=== PATIENT | female | born 1965 | race Caucasian/White ===

== ENCOUNTER → 2018-10-08 | Outpatient (CLI) | payer OTHER ==
[~2018-10-08] MED LIST: IOPAMIDOL 370 MG/ML 200 ML INFUS..BTL INJ ONE; LEVOTHYROXINE100 MC1 IV; MIMVEY 1-0.5 M1 EACH PO; SODIUM CHLORIDE 0.9% 100 ML 100 ML ONE
--- NOTE | 2018-10-08 16:56 | Diagnostic Imaging Report ---
EXAM: CTA chest with contrast INDICATION: Precordial chest pain. Aneurysm. Back pain COMPARISON: None. TECHNIQUE: The chest was scanned utilizing a multidetector helical scanner after administration of IV contrast. Coronal and sagittal reformations were obtained. CTA chest protocol was performed. Three-D reformatted images were obtained of the thoracic aorta IV CONTRAST: 100 mL of Isovue-370 ORAL CONTRAST: Water RADIATION DOSE: Total DLP: 387.53 mGy*cm Estimated effective dose: (DLP x 0.015 x size factor) mSv All CT scans are performed using radiation dose reduction techniques. Technical factors are evaluated and adjusted to ensure appropriate moderation of exposure. Automated dose management technology is applied to adjust the radiation dose to minimize exposure while achieving a diagnostic-quality image. COMPLICATIONS: None FINDINGS: LINES/ TUBES: None. LUNGS AND AIRWAYS: 5 mm calcified granuloma in the anterior inferior right middle lobe. The lungs are otherwise unremarkable. Airways are normal. PLEURA: The pleural spaces are clear. HEART AND MEDIASTINUM: The thyroid gland is normal. No mediastinal, hilar or axillary lymphadenopathy. The heart is normal in size. There is no pericardial effusion. Prominence of the ascending thoracic aorta measuring 3.4 cm in maximal dimension. The thoracic aorta and branch vessels are otherwise normal in appearance. UPPER ABDOMEN: Surgical clips are seen in the gallbladder fossa. BONES: The visualized bony thorax is within normal limits. SOFT TISSUES: Unremarkable. Impression: Prominence of the ascending thoracic aorta measuring 3.4 cm in maximal dimension. The thoracic aorta and branch vessels are otherwise normal in appearance. Signed by: Dr. Claudio Brock M.D. on 10/08/2018 4:53 PM
== END ==
LOC: CT 13:13
PROVIDERS: ATTEND Internal Medicine Cardiovascular Disease
DX: R07.2 Precordial pain (principal); M54.9 Dorsalgia, unspecified
CPT/HCPCS: 71275; Q9967

== ENCOUNTER → 2018-10-12 | Outpatient (CLI) | payer OTHER ==
[~2018-10-12] MED LIST changes: +CARAFATE1 GM/10 ML PO; +LEVOTHYROXINE112 MCG PO; +OMEPRAZOLE40 MG PO
--- NOTE | 2018-10-12 17:19 | Diagnostic Imaging Report ---
EXAMINATION: CT of the abdomen and pelvis with contrast. TECHNIQUE: Helical CT images of the abdomen and pelvis were performed from the lung bases to the lesser trochanters after the intravenous administration of 150 cc of Isovue 300 and the oral administration of none. Coronal and sagittal reformatted images were obtained.Dose modulation, iterative reconstruction, and/or weight based adjustment of the mA/kV was utilized to reduce the radiation dose to as low as reasonably achievable. COMPARISON: None. CLINICAL HISTORY:Right upper quadrant pain DISCUSSION: ABDOMEN/PELVIS: LOWER THORAX:Unremarkable. HEPATOBILIARY: No focal hepatic lesions. No intra-or extrahepatic biliary ductal dilation. Cholecystectomy. SPLEEN: No splenomegaly. PANCREAS: No focal masses or ductal dilatation. ADRENALS: No adrenal nodules. KIDNEYS/URETERS: Punctate right renal and left renal calculus. PELVIC ORGANS/BLADDER: The bladder is normal. PERITONEUM/RETROPERITONEUM: No free air or fluid. LYMPH NODES: No intra-abdominal, retroperitoneal, pelvic or inguinal lymphadenopathy. VESSELS: The celiac trunk,superior and inferior mesenteric and bilateral renal arteries are patent The portal, superior mesenteric and splenic veins are patent. GI TRACT: No distention or wall thickening. Diverticulosis without inflammatory change. Appendix is normal. BONES AND SOFT TISSUE: No bony destructive lesions. No soft tissue abnormalities. IMPRESSION: No acute CT finding. Punctate bilateral renal calculi Signed by: Dr. Bill Bynum M.D. on 10/12/2018 5:16 PM
== END ==
LOC: CT 15:45
PROVIDERS: ATTEND Internal Medicine Gastroenterology
DX: R10.11 Right upper quadrant pain (principal); R10.13 Epigastric pain; R11.0 Nausea; R19.7 Diarrhea, unspecified
CPT/HCPCS: 74177; Q9967

== ENCOUNTER → 2018-10-14 | Day surgery (SDC) | payer OTHER ==
[~2018-10-14] MED LIST changes: +FENTANYL CITRATE/PF 100MCG/2 ML INJ ONE; +GLUCAGON FOR INJ 1 MG VIAL ONE; +HYOSCYAMINE SULFATE 0.5 MG/ML INJ ONE; -IOPAMIDOL 370 MG/ML 200 ML INFUS..BTL INJ ONE; +MIDAZOLAM HCL 2 MG/2 ML VIAL ONE; +PROPOFOL IV EMULSION 10 MG/ML 50 ML VIAL ONE; -SODIUM CHLORIDE 0.9% 100 ML 100 ML ONE
--- OUTSIDE RECORDS SUMMARY | 2018-10-14 07:46 | XMS REPORT ---
Author Author [facility] Address Unknown Phone Unavailable Care Team Providers Care Wall Insulation Sprayer Name Role Phone CAROL NGUYEN Unavailable Unavailable Maxine SHANNON Unavailable Unavailable REJI SHANNON Unavailable Unavailable Problems This patient has no known problems. Allergies, Adverse Reactions, Alerts This patient has no known allergies or adverse reactions. Medications This patient has no known medications. Results Test Description Test Time Test Comments Text Results Atomic Results Result Comments CT ABDOMEN/PELVIS W 2018-10-12 17:10:00 [place] [address] Patient Name: AMY SARAVIA MR #: [id number] : 1965 Age/Sex: 53/F Req #: [id number] Adm Physician: Ordered by: CAROL NGUYEN MD Report #: [id number] Location: CT Room/Bed: Procedure: [id number] CT/CT ABDOMEN/PELVIS W Exam Date: Exam Time: REPORT STATUS: Signed EXAMINATION: CT of the abdomen and pelvis with contrast. TECHNIQ UE: Helical CT images of the abdomen and pelvis were performed from the lung bases to the lesser trochanters after the intravenous administration of 150 cc of Isovue 300 and the oral administration of none. Coronal and sagittal reformatted images were obtained.Dose modulation, iterative reconstruction, and/or weight based adjustment of the mA/kV was utilized to reduce the radiation dose to as low as reasonably achievable. COMPARISON: None. CLINICAL HISTORY:Right upper quadrant pain DISCUSSION: ABDOMEN/PELVIS: LOWER THORAX:Unremarkable. HEPATOBILIARY: No focal hepatic lesions. No intra-or extrahepatic biliary ductal dilation. Cholecystectomy. SPLEEN: No splenomegaly. PANCREAS: No focal masses or ductal dilatation. ADRENALS: No adrenal nodules. KIDNEYS/URETERS: Punctate right renal and left renal calculus. PELVIC ORGANS/BLADDER: The bladder is normal. PERITONEUM/RETROPERITONEUM: No free air or fluid. LYMPH NODES: No intra-abdominal, retroperitoneal, pelvic or inguinal lymphadenopathy. VESSELS: The celiac trunk,superior and inferior mesenteric and bilateral renal arteries are patent The portal, superior mesenteric and splenic veins are patent. GI TRACT: No distention or wall thickening. Diverticulosis without inflammatory change. Appendix is normal. BONES AND SOFT TISSUE: No bony destructive lesions. No soft tissue abnormalities. IMPRESSION: No acute CT finding. Punctate bilateral renal calculi Signed by: Dr. Reji Alvarado M.D. on 10/12/2018 5:16 PM Dictated By: REJI ALVARADO MD 15 Transcribed By: ANDI on 10/12/181715 COPY TO: CAROL NGUYEN MD CTA CHEST 2018-10-08 16:45:00 [place] [address] Patient Name: AMY SARAVIA MR #: [id number] : 1965 Age/Sex: 53/F Req #: [id number] Adm Physician: Ordered by: KAREN SHANNON DO Report #: [id number] Location: CT Room/Bed: Procedure: [id number] CT/CTA CHEST Exam Date: 10/08/18 Exam Time: 1400 REPORT STATUS: Signed EXAM: CTA chest with contrast INDICATION: Precordial chest pain. Aneurysm. Back pain COMPARISON: None. TECHNIQUE: The chest was scanned utilizing a multidetector helical scanner after administration of IV contrast. Coronal and sagittal reformations were obtained. CTA chest protocol was performed. Three-D reformatted images were obtained of the thoracic aorta IV CONTRAST: 100 mL of Isovue-370 ORAL CONTRAST: Water RADIATION DOSE: Total DLP: 387.53 mGy*cm Estimated effective dose: (DLP x 0.015 x size factor) mSv All CT scans are performed using radiation dose reduction techniques. Technical factors are evaluated and adjusted to ensure appropriate moderation of exposure. Automated dose management technology is applied to adjust the radiation dose to minimize exposure while achieving a diagnostic-quality image. COMPLICATIONS: None FINDINGS: LINES/ TUBES: None. LUNGS AND AIRWAYS: 5 mm calcified granuloma in the anterior inferior right middle lobe. The lungs are otherwise unremarkable. Airways are normal. PLEURA: The pleural spaces are clear. HEART AND MEDIASTINUM: The thyroid gland is normal. No mediastinal, hilar or axillary lymphadenopathy. The heart is normal in size. There is no pericardial effusion. Prominence of the ascending thoracic aorta measuring 3.4 cm in maximal dimension. The thoracic aorta and branch vessels are otherwise normal in appearance. UPPER ABDOMEN: Surgical clips are seen in the gallbladder fossa. BONES: The visualized bony thorax is within normal limits. SOFT TISSUES: Unremarkable. Impression: Prominence of the ascending thoracic aorta measuring 3.4 cm in maximal dimension. The thoracic aorta and branch vessels are otherwise normal in appearance. Signed by: Dr. Claudio Brock M.D. on 10/08/2018 4:53 PM Dictated By: CLAUDIO BROCK MD, MD 1656 Transcribed By: ANDI on 10/08/18 1658 COPY TO: KAREN TORRES DO HEPTOBILIARY W PHARM [place] [address] Patient Name: AMY SARAVIA MR #: [id number] : 1965 Age/Sex: 51/F Req #: [id number] Adm Physician: Ordered by: SHANNON ANDREW DO Report #: [id number] Location: [place] Room/Bed: Procedure: [id number] NM/HEPTOBILIARY W PHARM Exam Date: 07/13/17 Exam Time: 1400 REPORT STATUS: Signed Hepatobiliary Scan with Gallbladder Ejection Fraction Clinical information: RUQ pain x 3 months Technique: Following intravenous administration of 7 millicuries of Tc-99m mebrofenin, dynamic images of the abdomen in the anterior projection were obtained through 40 minutes. Sincalide (CCK analog) 1.8 micrograms was administered intravenously over 30 minutes with additional imaging for determination of gallbladder ejection fraction. Discussion: Perfusion of the liver is normal. Extraction of tracer by the liver parenchyma is normal. Tracer appears promptly within the biliary tract. The gallbladder begins to fill by 6 minutes post injection of tracer and fills adequately. Tracer is seen in the small bowel by 30 minutes. The gallbladder ejection fraction with sincalide is 18% (normal greater than 40%). Impression: 1. Filling of the gallbladder excludes acute cystic duct obstruction/acute cholecystitis. 2. The decreased gallbladder ejection fraction of 18% supports the clinical diagnosis of chronic cholecystitis/gallbladder dyskinesia. Signed by: Dr. Ar Holley M.D. on 07/14/2017 10:27 AM Dictated By: AR HOLLEY MD 1027 Transcribed By: ANDI on 07/14/17 1027 COPY TO: REJI SHANNON DO
[2018-10-14 12:10] VITALS: BP 115/88
--- NOTE | 2018-10-14 12:31 | Operative Report ---
DATE OF PROCEDURE: October 14, 2018 REFERRING PHYSICIAN: Dr. Shahbaz Shannon PROCEDURES PERFORMED 1. Esophagogastroduodenoscopy with esophageal dilatation and biopsies. 2. Colonoscopy with polypectomy. INDICATIONS FOR EGD: Dysphagia, epigastric pain. INDICATIONS FOR COLONOSCOPY: Colorectal cancer screening. MEDICATION: Patient was done under MAC. Please see anesthesiologist's note. PROCEDURE: With the patient in the left lateral decubitus position, the flexible fiberoptic Olympus gastroscope was inserted into the esophagus under direct visualization without any difficulty. There was some patchy intense erythema noted in the distal esophagus. A mild stricture was noted at the GE junction that was dilated to a size 50-Swedish Mcgill. The scope was then advanced with ease into the stomach. Mucosa overlying the antrum and the body revealed some patchy erythema and low-grade to moderate edema, and biopsies were obtained and sent to stain for H. pylori. Pylorus appeared to be of normal contour and shape. It was intubated with ease, and the scope was advanced all the way to the 2nd portion of the duodenum. The scope was then withdrawn slowly. Mucosa overlying the proximal 2nd portion and the duodenal bulb overall appeared to be within normal limits. Biopsies were obtained to rule out sprue. The scope was then withdrawn back into the stomach and retroflexed. Mucosa overlying the fundus and the cardia appeared to be within normal limits. The scope was then straightened out. It was subsequently withdrawn. Patient tolerated the procedure well. IMPRESSION 1. Distal esophagitis. 2. Esophageal stricture at gastroesophageal junction dilated to size 50-Swedish Mcgill. 3. Gastritis, biopsied. Biopsies sent to stain for H. pylori. 4. Rule out sprue. PLAN: Follow up histology. Increase omeprazole to 40 mg 1 p.o. a.c. b.i.d. The patient was then turned around. After adequate lubrication of the anal canal, a flexible fiberoptic Olympus colonoscope was inserted into the rectum with ease and advanced all the way to the cecum. A minute polyp was hot biopsied from the cecum. The scope was then withdrawn slowly. Mucosa overlying the ascending colon appeared to be within normal limits. One polyp was snared from the transverse colon. One polyp was snared and 1 polyp was hot biopsied from the descending colon. Minimal diverticulosis was noted in the sigmoid colon. One polyp was snared and two polyps were hot biopsied in the sigmoid colon. One polypectomy site was hemoclipped. One polyp was hot biopsied from the rectum. A total of 8 polyps were removed from the colon. The scope was then retroflexed into the distal rectum, and small internal hemorrhoids were noted, none of which was actively bleeding. The scope was then straightened out. It was subsequently withdrawn. Patient tolerated the procedure well. IMPRESSION 1. Cecal polyp, hot biopsied. 2. Transverse colon polyp x1, snared. 3. Diverticulosis, sigmoid colon, minimal. 4. Sigmoid colon polyps x3, one snared and two hot biopsied. One polypectomy site hemoclipped. 5. Rectal polyp, hot biopsied. 6. Internal hemorrhoids, none actively bleeding. PLAN: Follow up histology. Initiate high-fiber, low-fat diet. Patient might benefit from a followup colonoscopy in 3 years. Job#: [id number] cc:RHONDA SHANNON DO
== END | disposition home or self-care (01) ==
LOC: OR 07:44
PROVIDERS: ATTEND Internal Medicine Gastroenterology
DX: Z12.11 Encounter for screening for malignant neoplasm of colon (principal); K63.5 Polyp of colon; K62.1 Rectal polyp; K29.70 Gastritis, unspecified, without bleeding; K22.2 Esophageal obstruction; K21.0 Gastro-esophageal reflux disease with esophagitis; R19.7 Diarrhea, unspecified; K57.30 Diverticulosis of large intestine without perforation or abscess without bleeding; K64.8 Other hemorrhoids; Z88.1 Allergy status to other antibiotic agents; Z88.8 Allergy status to other drugs, medicaments and biological substances; M54.9 Dorsalgia, unspecified; E78.5 Hyperlipidemia, unspecified; Z87.442 Personal history of urinary calculi
CPT/HCPCS: 43239; 43450; 45384; 45385; J1610; J1980; J2250; J2704; 45378

== ENCOUNTER → 2020-04-11 | Day surgery (SDC) | payer OTHER ==
[2020-04-06 11:35] LABS: BASOPHILS % 0.4 % (0.0-1.0); EOSINOPHILS # (AUTO) 0.1 (0.0-0.4); EOSINOPHILS % 1.6 % (0.0-6.0); HEMATOCRIT 37.3 % (34.2-44.1); HEMOGLOBIN 12.1 g/dL (12.0-16.0); LYMPHOCYTES # (AUTO) 1.7 (1.0-3.2); LYMPHOCYTES % 24.9 % (18.0-39.1); MEAN CORPUSCULAR HEMOGLOBIN 30.2 pg (28-32); MEAN CORPUSCULAR HGB CONC 32.4 g/dL (31-35); MONOCYTES # (AUTO) 0.5 (0.2-0.8); MONOCYTES % 6.9 % (4.4-11.3); NEUTROPHILS # (AUTO) 4.6 (2.1-6.9); NEUTROPHILS % 65.9 % (38.7-80.0); PLATELET COUNT 294 x10e3/uL (140-360); RED BLOOD COUNT 4.01 x10e6/uL (3.6-5.1); RED CELL DISTRIBUTION WIDTH 12.7 % (11.7-14.4)
[~2020-04-11] MED LIST changes: +ACID CONTROL C1 EACH PO; +DICYCLOMINE HCL10 MG PO; -FENTANYL CITRATE/PF 100MCG/2 ML INJ ONE; -GLUCAGON FOR INJ 1 MG VIAL ONE; -HYOSCYAMINE SULFATE 0.5 MG/ML INJ ONE; +LIDOCAINE HCL 2% LOCAL INJ 5 ML SDV VIAL INJ ONE; -MIDAZOLAM HCL 2 MG/2 ML VIAL ONE; +PANTOPRAZOLE 40 MG 10ML VIAL ONE; +PROPOFOL IV EMULSION 10 MG/ML 20 ML VIAL ONE; -PROPOFOL IV EMULSION 10 MG/ML 50 ML VIAL ONE
[2020-04-11 12:02] VITALS: BP 116/76
--- NOTE | 2020-04-11 13:30 | Operative Report ---
DATE OF PROCEDURE: 04/11/2020 SURGEON: Iain Lynn MD PROCEDURE: EGD with biopsies and esophageal dilatation. REFERRING PHYSICIAN: Sukh Sommer DO. INDICATIONS FOR EGD: Upper abdominal pain, bloating, and black tarry stools. MEDICATIONS: The patient was done under MAC, please see anesthesiologist's note. PROCEDURE IN DETAIL: With the patient in left lateral decubitus position a flexible fiberoptic Olympus gastroscope was introduced into the esophagus under direct visualization without any difficulty. There was some patchy erythema noted in distal esophagus. The esophagus was then dilated to size 52-Tuvaluan Mcgill. The scope was then advanced with ease into the stomach traversing a small sliding hiatal hernia. Mucosa overlying the antrum of the body revealed some patchy erythema and [id number] edema and biopsies were obtained and sent to stain for H pylori. The pylorus was of normal contour and shape, it was intubated with ease and the scope was advanced all the way to the second portion of the duodenum. Biopsies were obtained from the proximal second portion and the duodenal bulb to rule out sprue. The scope was then withdrawn back into the stomach and retroflexed and mucosa overlying the fundus and the cardia appeared to be within normal limits. The scope was then straightened out, it was subsequently withdrawn. The patient tolerated the procedure well. IMPRESSION: 1. Distal esophagitis, mild. 2. Esophagus dilated to size 52-Tuvaluan Mcgill. 3. Small sliding hiatal hernia. 4. Gastritis biopsied, biopsies sent to stain for H pylori. 5. Rule out sprue. PLAN: Continue Protonix 40 mg one p.o. a.c. b.i.d., Protonix 40 mg one p.o. a.c. b.i.d. findings do not necessarily explain the patient's black tarry stools, might benefit from a GI bleed scan and possibly a colonoscopy. Thank you very much. Iain Lynn MD [facility] /[id number] cc: Sukh Sommer DO
== END | disposition home or self-care (01) ==
LOC: ENDO 08:42
PROVIDERS: ATTEND Internal Medicine Gastroenterology
DX: K44.9 Diaphragmatic hernia without obstruction or gangrene (principal); K29.50 Unspecified chronic gastritis without bleeding; K29.60 Other gastritis without bleeding; K20.9 Esophagitis, unspecified; K21.9 Gastro-esophageal reflux disease without esophagitis; R19.7 Diarrhea, unspecified; E03.9 Hypothyroidism, unspecified; Z88.1 Allergy status to other antibiotic agents; Z88.8 Allergy status to other drugs, medicaments and biological substances; Z01.810 Encounter for preprocedural cardiovascular examination; Z01.812 Encounter for preprocedural laboratory examination; Z11.59 Encounter for screening for other viral diseases
CPT/HCPCS: 36415; 43239; 43450; 85025; 93005; C9113; J2001; J2704; U0002

== ENCOUNTER → 2020-04-12 | Outpatient (CLI) | payer OTHER ==
[~2020-04-12] MED LIST changes: -LIDOCAINE HCL 2% LOCAL INJ 5 ML SDV VIAL INJ ONE; -PANTOPRAZOLE 40 MG 10ML VIAL ONE; -PROPOFOL IV EMULSION 10 MG/ML 20 ML VIAL ONE
--- NOTE | 2020-04-12 16:14 | Diagnostic Imaging Report ---
Tagged-RBC GI Bleed Study Clinical information: 54-year-old female with gastritis. Discussion: The patient's own red blood cells were labeled with 26 mCi of technetium-99m pertechnetate using the in vitro method (UltraTag). Dynamic images of the abdomen were obtained through 60 minutes. Distribution of tracer activity appears physiologic throughout the abdomen. No abnormal accumulation of tracer is seen within the gastrointestinal lumen. Impression: No scan evidence of active gastrointestinal bleeding at this time. Signed by: Dr. Peggy Holley M.D. on 04/12/2020 4:11 PM
== END ==
LOC: NM 08:59
PROVIDERS: ATTEND Internal Medicine Gastroenterology
DX: K29.70 Gastritis, unspecified, without bleeding (principal); K20.9 Esophagitis, unspecified; K44.9 Diaphragmatic hernia without obstruction or gangrene
CPT/HCPCS: 78278; A9512 ×2

== ENCOUNTER → 2020-10-11 | Day surgery (SDC) | payer OTHER ==
[~2020-10-11] MED LIST changes: +DEXILANT60 MG PO; +FENTANYL CITRATE/PF 100MCG/2 ML INJ ONE; +LIDOCAINE HCL 2% LOCAL INJ 5 ML SDV VIAL INJ ONE; +MIDAZOLAM HCL 2 MG/2 ML VIAL ONE; +PANTOPRAZOLE 40 MG 10ML VIAL IV STA; +PROPOFOL IV EMULSION 10 MG/ML 20 ML VIAL ONE
[2020-10-11 08:27] VITALS: BP 102/55
== END | disposition home or self-care (01) ==
LOC: ENDO 05:55
PROVIDERS: ATTEND Internal Medicine Gastroenterology
DX: K20.90 Esophagitis, unspecified without bleeding (principal); K31.7 Polyp of stomach and duodenum; K29.70 Gastritis, unspecified, without bleeding; Z88.8 Allergy status to other drugs, medicaments and biological substances; Z01.810 Encounter for preprocedural cardiovascular examination
CPT/HCPCS: 43239; 43450; 93005; C9113; J2001; J2250; J2704; J3010

== ENCOUNTER → 2020-11-26 | Outpatient (CLI) | payer OTHER ==
[~2020-11-26] MED LIST changes: -FENTANYL CITRATE/PF 100MCG/2 ML INJ ONE; -LIDOCAINE HCL 2% LOCAL INJ 5 ML SDV VIAL INJ ONE; -MIDAZOLAM HCL 2 MG/2 ML VIAL ONE; -PANTOPRAZOLE 40 MG 10ML VIAL IV STA; -PROPOFOL IV EMULSION 10 MG/ML 20 ML VIAL ONE
== END ==
LOC: US 13:26
PROVIDERS: ATTEND Family Medicine
DX: R22.1 Localized swelling, mass and lump, neck (principal)
CPT/HCPCS: 76536

== ENCOUNTER 2021-03-18 12:45 | Emergency (ER) | payer OTHER ==
[~2021-03-18] VITALS: Ht 170.2 cm; Wt 79.4 kg
[2021-03-18] MEDS ORDERED: SODIUM CHLORIDE 0.9% 1000ML 1,000 ML IV STA (13:00)
[2021-03-18] MEDS ORDERED: KETOROLAC TROMETHAMINE 30 MG/ML VIAL IV STA (13:49)
[2021-03-18 13:52] LABS: BASOPHILS % 0.5 % (0.0-1.0); EOSINOPHILS # (AUTO) 0.1 (0.0-0.4); EOSINOPHILS % 1.2 % (0.0-6.0); HEMATOCRIT 40.6 % (34.2-44.1); HEMOGLOBIN 13.1 g/dL (12.0-16.0); LYMPHOCYTES # (AUTO) 2.2 (1.0-3.2); MEAN CORPUSCULAR HEMOGLOBIN 30.5 pg (28-32); MEAN CORPUSCULAR HGB CONC 32.3 g/dL (31-35); MEAN CORPUSCULAR VOLUME 94.4 fL (81-99); MONOCYTES # (AUTO) 0.4 (0.2-0.8); MONOCYTES % 5.4 % (4.4-11.3); NEUTROPHILS % 64.8 % (38.7-80.0); PLATELET COUNT 301 x10e3/uL (140-360); RED CELL DISTRIBUTION WIDTH 12.9 % (11.7-14.4)
[2021-03-18] MEDS ORDERED: ONDANSETRON HCL INJ 2MG/ML 2ML 2 MG/ML VIAL ONE (14:01)
[2021-03-18] MEDS ORDERED: KETOROLAC TROMETHAMINE 30 MG/ML VIAL ONE (14:01)
[2021-03-18 14:05] LABS: CLARITY,URINE CLEAR (CLEAR); COLOR,URINE YELLOW (YELLOW); KETONES,URINE NEGATIVE (NEGATIVE); LEUKOCYTE ESTERASE ,URINE NEGATIVE (NEGATIVE); NITRITE,URINE NEGATIVE (NEGATIVE); PROTEIN,URINE DIPSTICK NEGATIVE (NEGATIVE); URINE UROBILINOGEN 0.2 mg/dL (0.2 - 1)
[2021-03-18 14:07] LABS: EPITHELIAL CELLS,URINE FEW /LPF; RBC,URINE 0-5 /HPF (0-5); WBC,URINE (MAN) 0-5 /HPF (0-5)
[2021-03-18 14:14] LABS: ANION GAP 13.8 mmol/L (8-16); CALCIUM 8.9 mg/dL (8.4-10.2); CREATININE, SERUM 0.84 mg/dL (0.57-1.11); POTASSIUM 3.8 mmol/L (3.5-5.1)
== END 2021-03-18 15:35 | disposition home or self-care (01) ==
LOC: ER 13:23
DX: R10.31 Right lower quadrant pain (principal); N20.0 Calculus of kidney; K57.90 Diverticulosis of intestine, part unspecified, without perforation or abscess without bleeding
CPT/HCPCS: 36415; 74176; 80048; 81001; 83690; 85025; 99284; J1885; J2405; J7030

== ENCOUNTER → 2024-04-14 | Day surgery (SDC) | payer OTHER ==
[2024-04-05 10:15] LABS: BASOPHILS % 0.6 % (0.0-1.0); EOSINOPHILS # (AUTO) 0.2 (0.0-0.4); EOSINOPHILS % 2.4 % (0.0-6.0); HEMATOCRIT 39.7 % (34.2-44.1); HEMOGLOBIN 13.1 g/dL (12.0-16.0); LYMPHOCYTES # (AUTO) 1.6 (1.0-3.2); LYMPHOCYTES % 22.8 % (18.0-39.1); MEAN CORPUSCULAR VOLUME 97.1 fL (81-99); MONOCYTES # (AUTO) 0.5 (0.2-0.8); MONOCYTES % 6.9 % (4.4-11.3); NEUTROPHILS # (AUTO) 4.8 (2.1-6.9); PLATELET COUNT 316 x10e3/uL (140-360); RED BLOOD COUNT 4.09 x10e6/uL (3.6-5.1); RED CELL DISTRIBUTION WIDTH 13.1 % (11.7-14.4); WHITE BLOOD COUNT 7.14 x10e3/uL (4.8-10.8)
[2024-04-05 10:35] LABS: ALBUMIN 3.7 g/dL (3.5-5.0); ALBUMIN/GLOBULIN RATIO 1.2 (0.8-2.0); ANION GAP 11.4 mmol/L (8-16); BILIRUBIN,TOTAL 0.5 mg/dL (0.2-1.2); CALCIUM 9.1 mg/dL (8.4-10.2); CHOL/HDL RATIO 5.3 (3.0-3.6); CREATININE, SERUM 0.87 mg/dL (0.57-1.11); POTASSIUM 4.4 mmol/L (3.5-5.1); TOTAL PROTEIN 6.8 g/dL (6.5-8.1)
[2024-04-05 10:44] LABS: INR 0.93; PROTHROMBIN TIME 13.1 seconds (11.9-14.5)
[~2024-04-14] VITALS: Ht 170.2 cm; Wt 79.4 kg
[2024-04-14] VITALS (10 sets, daily range): BP systolic 101–123; BP diastolic 72–85; PULSE 63–82; RESP 14–22; TEMP 98.1; O2SAT 98–100
[~2024-04-14] MED LIST changes: +FENTANYL CITRATE/PF 100MCG/2 ML INJ ONE; +HEPARIN SOD (PORCINE) 1000 UNIT/ML 30ML ONE; +HEPARIN SOD/SOD CHLORIDE 2,000 ML ONE; +IOPAMIDOL 370 MG/ML 100 ML INFUS..BTL INJ ONE; +LIDOCAINE HCL 2% LOCAL 20 ML VIAL ONE; +MIDAZOLAM HCL 2 MG/2 ML VIAL ONE; +MULTI-VITAMIN1 EACH PO; +NITROGLYCERIN/D5W 200 MCG/ML 250 ML ONE; +SODIUM CHLORIDE 0.9% 1000ML 1,000 ML ONE; +VERAPAMIL HCL 2.5 MG/ML 2 ML VIAL ONE
== END | disposition home or self-care (01) ==
LOC: CATH LAB 09:30
PROVIDERS: ATTEND Internal Medicine Cardiovascular Disease
DX: I25.10 Atherosclerotic heart disease of native coronary artery without angina pectoris (principal); R00.2 Palpitations; E78.5 Hyperlipidemia, unspecified; I65.23 Occlusion and stenosis of bilateral carotid arteries; E07.9 Disorder of thyroid, unspecified; Z01.812 Encounter for preprocedural laboratory examination; Z79.899 Other long term (current) drug therapy; Z86.16 Personal history of COVID-19; Z82.49 Family history of ischemic heart disease and other diseases of the circulatory system; Z82.3 Family history of stroke
CPT/HCPCS: 36415; 76937; 80053; 80061; 85025; 85610; 93458; C1887; J1644; J2001; J2250; J3010; J7030; Q9967; 99152; 99153